=== PATIENT | female | born 1975 | race Caucasian/White ===

== ENCOUNTER 2016-12-16 20:10 | Emergency (ER) | payer BC, OTHER ==
[~2016-12-16] VITALS: Ht 170.2 cm; Wt 79.4 kg
[~2016-12-16 20:10] MED LIST: DICY10CA55 PO; LEVO112T4 PO; MTR600X PO; PRENTAB26 PO
[2016-12-16 20:44] VITALS: TEMP 36.3; Ht 170.2 cm; Wt 79.4 kg
[2016-12-16 21:17] VITALS: O2SAT 98
[2016-12-16 21:31] LABS: BASO % 0.3 %; BASO ABS # 0.03 K/uL (0-0.2); COMPLETE YES; EOS % 2.5 %; HEMATOCRIT 34.3 % (37-47); IG% 0.3 %; LYMPH % 21.4 %; LYMPH ABS # 2.36 K/uL (1.2-3.4); MEAN CELL VOLUME 85.8 fL (80-100); MEAN CORPUSCULAR HEMOGLOBIN 29.5 pg (25-34); MEAN CORPUSCULAR HGB CONC 34.4 g/dl (32-36); MEAN PLATELET VOLUME 8.5 fL (7.4-10.4); MONO % 7.1 %; NEUT % 68.4 %; PLATELET COUNT 380 K/uL (130-400); WHITE BLOOD COUNT 11.04 K/uL (4.8-10.8)
[2016-12-16 21:48] LABS: PROTHROMBIN TIME (PATIENT) 10.7 SECONDS (9.0-12.0)
--- NOTE | 2016-12-16 21:48 | EMERGENCY ROOM VISIT NOTE ---
History Report prepared by [place]: Gabriella Moreno Under the Supervision of: Dr. Sundar Hughes M.D. First contact with patient: 20:58 Chief Complaint: VAGINAL BLEEDING Stated Complaint: EXCESSIVE BLEEDING AFTER MISCARRIAGE History of Present Illness The patient is a 41 year old female who presents to the Emergency Room with complaints of worsening vaginal bleeding that started this morning. She states that she is passing clots. She states that she had a miscarriage this morning. This was the patient's second and first miscarriage. She has a 13 month old at home. The patient had an ultrasound done earlier today and it revealed that her uterus was empty. She states that she has been bleeding through adult diapers in less than one hour and she was told that if she bled through one pad an hour she should come into the ED. The patient states that she talked to the triage nurse in [place] multiple times today who told her to come into the ED if her symptoms persisted and call [facility] [facility] on the way in , but she was given the wrong number. The patient also experiencing dizziness and numbness in her bilateral hands. Additionally, the patient is experiencing intermittent abdominal cramping when she is about to pass large clots. The patient states that she has A+ positive blood. Source of History: patient Onset: this morning Position: other (vagina) Quality: other (vaginal bleeding with clots) Timing: worsening Associated Symptoms: + abdominal pain (cramping), + numbness (bilateral hands) Note: dizziness Review of Systems See HPI for pertinent positives & negatives. A total of 10 systems reviewed and were otherwise negative. Past Medical & Surgical Surgical Problems: (1) History of partial thyroidectomy Family History No significant family history Social History Smoking Status: Former Smoker Alcohol Use: none Marital Status: in relationship Occupation Status: employed Current/Historical Medications Scheduled Levothyroxine Sodium (Levothyroxine Sodium), 112 MCG PO DAILY Multivit/Min/Iron/Fol Ac/Pren ( Vitamin), 1 TAB PO DAILY Scheduled PRN Ibuprofen (Ibuprofen), 600 MG PO Q4H PRN for PAIN, PHAM, CRAMPING OR FEVER Allergies Coded Allergies: No Known Allergies (Verified , NO, 12/16/16) Physical Exam Vital Signs Date Time Temp Pulse Resp B/P Pulse Ox O2 Delivery O2 Flow Rate FiO2 12/17/16 00:50 75 16 105/75 97 12/16/16 23:38 72 18 111/75 98 Room Air 12/16/16 22:58 75 20 115/70 98 Room Air 12/16/16 21:36 80 12/16/16 21:17 98 Room Air 12/16/16 20:44 36.3 107 18 107/71 99 Room Air Physical Exam GENERAL: Patient is a healthy-appearing well-nourished female. HEAD: Normocephalic atraumatic EYES: Ocular movements intact pupils equal and react to light OROPHARYNX mucous membranes are moist no exudates present no erythema or edema present NECK: Supple no nuchal rigidity CHEST: Good equal expansion LUNGS: Clear and equal to auscultation CARDIAC: Normal S1 and S2 ABDOMEN: Soft nontender no guarding BACK: No CVA tenderness EXTREMITIES: No pain upon palpation normal muscle strength in all groups no clubbing cyanosis or edema NEURO: Patient is following commands is answering questions appropriately. Alert and oriented x3 Cranial Nerves 2-12 grossly intact Medical Decision & Procedures ER Provider Diagnostic Interpretation: US results as stated below per my review and radiologist interpretation: US PELVIC/ENDOVAG: IMPRESSION: No IUP, Endometrium measures 1.1 cm and is heterogeneous. Retained products of conception/debris is not excluded. 2.9 cm right ovarian cyst. No torsion. 2.8 cm left ovarian cyst. No torsion. Probable of small fibroid. 1.3 cm echogenic structure in the expected area of the left ovary. Could be dermoid. Differential includes bowel gas in the region. Laboratory Results 12/16/16 21:18 Red Blood Count 4.00, Mean Corpuscular Volume 85.8, Mean Corpuscular Hemoglobin 29.5, Mean Corpuscular Hemoglobin Concent 34.4, Mean Platelet Volume 8.5, Neutrophils (%) (Auto) 68.4, Lymphocytes (%) (Auto) 21.4, Monocytes (%) (Auto) 7.1, Eosinophils (%) (Auto) 2.5, Basophils (%) (Auto) 0.3, Neutrophils # (Auto) 7.56, Lymphocytes # (Auto) 2.36, Monocytes # (Auto) 0.78, Eosinophils # (Auto) 0.28, Basophils # (Auto) 0.03 12/16/16 21:18 Test 12/16/16 21:18 12/16/16 22:03 White Blood Count 11.04 K/uL (4.8-10.8) Red Blood Count 4.00 M/uL (4.2-5.4) Hemoglobin 11.8 g/dL (12.0-16.0) Hematocrit 34.3 % (37-47) Mean Corpuscular Volume 85.8 fL (80-100) Mean Corpuscular Hemoglobin 29.5 pg (25-34) Mean Corpuscular Hemoglobin Concent 34.4 g/dl (32-36) Platelet Count 380 K/uL (130-400) Mean Platelet Volume 8.5 fL (7.4-10.4) Neutrophils (%) (Auto) 68.4 % Lymphocytes (%) (Auto) 21.4 % Monocytes (%) (Auto) 7.1 % Eosinophils (%) (Auto) 2.5 % Basophils (%) (Auto) 0.3 % Neutrophils # (Auto) 7.56 K/uL (1.4-6.5) Lymphocytes # (Auto) 2.36 K/uL (1.2-3.4) Monocytes # (Auto) 0.78 K/uL (0.11-0.59) Eosinophils # (Auto) 0.28 K/uL (0-0.5) Basophils # (Auto) 0.03 K/uL (0-0.2) RDW Standard Deviation 42.8 fL (36.4-46.3) RDW Coefficient of Variation 13.7 % (11.5-14.5) Immature Granulocyte % (Auto) 0.3 % Immature Granulocyte # (Auto) 0.03 K/uL (0.00-0.02) Prothrombin Time 10.7 SECONDS (9.0-12.0) Prothromb Time International Ratio 1.0 (0.9-1.1) Activated Partial Thromboplast Time 24.8 SECONDS (21.0-31.0) Partial Thromboplastin Ratio 1.0 Anion Gap 12.0 mmol/L (3-11) Est Creatinine Clear Calc Drug Dose 88.1 ml/min Estimated GFR () 89.7 Estimated GFR (Non- 77.4 BUN/Creatinine Ratio 11.4 (10-20) Calcium Level 8.4 mg/dl (8.5-10.1) Total Bilirubin 0.2 mg/dl (0.2-1) Aspartate Amino Transf (AST/SGOT) 16 U/L (15-37) Alanine Aminotransferase (ALT/SGPT) 17 U/L (12-78) Alkaline Phosphatase 76 U/L (45-117) Total Protein 6.3 gm/dl (6.4-8.2) Albumin 3.0 gm/dl (3.4-5.0) Globulin 3.3 gm/dl (2.5-4.0) Albumin/Globulin Ratio 0.9 (0.9-2) Human Chorionic Gonadotropin, Quant 3139 mIU/mL Urine Color RED Urine Appearance CLOUDY (CLEAR) Urine pH (4.5-7.5) Urine Specific [place] (1.000-1.030) Urine Protein (NEG) Urine Glucose (UA) (NEG) Urine Ketones (NEG) Urine Occult Blood (NEG) Urine Nitrite (NEG) Urine Bilirubin (NEG) Urine Urobilinogen (NEG) Urine Leukocyte Esterase (NEG) Urine RBC >30 /hpf (0-4) Urine WBC >30 /hpf (0-5) Urine Epithelial Cells 10-20 /lpf (0-5) Urine Bacteria NEG (NEG) Urine Test POS (NEG) Labs reviewed by ED physician. Medications Administered Medications (Trade) Dose Ordered Sig/Maxim Route Start Time Stop Time Status Last Admin Dose Admin Misoprostol (Cytotec Tab) 600 mcg NOW STAT PO 12/17/16 00:32 12/17/16 00:33 DC 12/17/16 00:49 600 MCG ED Course 2100: Past medical records reviewed. The patient was evaluated in room A12. A complete history and physical examination was performed. 2142: I discussed the patient's case with Dr. Harden - [facility] [employer], he has agreed to evaluate the patient. 2222: Dr. Harden evaluated the patient. He said to order an ultrasound and inform him of the results. 0023: Dr. Harden evaluated the patient. He said to start her on Misoprostol and he will call her tomorrow. 0032: Upon reexamination the patient is doing well. I discussed results and treatment plan with the patient. She verbalizes agreement and understanding. The patient is ready for discharge. Ordered Cytotec Tab 600 mcg PO Medical Decision Differential diagnosis: Etiologies such as ectopic , dysfunction uterine bleeding, bleeding dyscrasia, trauma, infection, as well as others were entertained. This is a 41-year-old female who presents emergency department after suffering a miscarriage earlier today. Upon arrival to emergency department the patient has no complaints. Due to the nature the patient's complaints a blood I was obtained however the patient is a positive. In addition the patient's hemoglobin appears to be stable. The patient is expecting to see Dr. Harden here in the emergency department so I did discuss the case with him. He asked for an ultrasound. The patient was then reevaluated by Fina who asked that the patient be started on misoprostol and that he will follow-up with her tomorrow. Patient was in agreement with the treatment plan. Consults Time Called: 2135 Consulting Physician: Dr. Harden - [facility] [facility] Returned Call: 2141 I discussed the patient's case with Dr. Harden - [facility], he has agreed to evaluate the patient. Impression Primary Impression: Miscarriage Scribe Attestation The scribe's documentation has been prepared under my direction and personally reviewed by me in its entirety. I confirm that the note above accurately reflects all work, treatment, procedures, and medical decision making performed by me. Departure Information Dispostion Home / Self-Care Referrals No Doctor, Assigned (PCP) Forms HOME CARE DOCUMENTATION FORM, IMPORTANT VISIT INFORMATION, WORK / SCHOOL INSTRUCTIONS Patient Instructions Miscarriage - [facility], [facility] Additional Instructions You have been examined and treated today on an emergency basis only. This is not a substitute for, or an effort to provide, complete comprehensive medical care. It is impossible to recognize and treat all injuries or illnesses in a single emergency department visit. It is therefore important that you follow up closely with your PCP. Call as soon as possible for an appointment. Thank you for your time and consideration. I look forward to speaking with you again soon. Please don't hesitate to call us if you have any questions.
[2016-12-16 21:55] LABS: BUN/CREATININE RATIO 11.4 (10-20); CALCIUM 8.4 mg/dl (8.5-10.1); CREATININE 0.93 mg/dl (0.60-1.20); POTASSIUM 3.4 mmol/L (3.5-5.1)
[2016-12-16 21:58] LABS: ALB/GLOB RATIO 0.9 (0.9-2)
[2016-12-16 22:36] LABS: MANUAL MICROSCOPIC REQUIRED? YES; PREG INTERNAL NEGATIVE QC NEG CLEAR BACKGROUND; PREG INTERNAL POSITIVE QC POS CONTROL LINE; REVIEW REQ? NO; SULFASALICYLIC ACID POS (NEG); URINE APPEARANCE CLOUDY (CLEAR); URINE COLOR RED
[2016-12-16 22:39] LABS: URINE RBC >30 /hpf (0-4); URINE WBC >30 /hpf (0-5)
[2016-12-16 22:40] LABS: URINE BACTERIA NEG (NEG)
[2016-12-17] MEDS ORDERED: MISOPROSTOL 200 MCG TAB PO STA (00:32)
[2016-12-17 00:50] VITALS: BP 105/75; PULSE 75; O2SAT 97
--- NOTE | 2016-12-17 01:46 | GYNECOLOGICAL CONSULTATION ---
DATE OF CONSULTATION: 12/16/2016 REQUESTING PHYSICIAN: Dr. Sundar Hughes. REASON FOR CONSULT: vaginal bleeding. HISTORY OF PRESENT ILLNESS: This is a 41-year-old G2, P1, who was 9 weeks as of this morning. She was seen in the office for an ultrasound because she had been passing clots and had passed what was suspected to be fetus in the last 2 days. The patient today underwent an ultrasound in the office which showed no IUP. The endometrium was thickened. Pelvic exam was unremarkable. The patient was, therefore, discharged home. She continued to experience heavy vaginal bleeding and came to the Emergency Room this evening. On arrival to the Emergency Room, she had no shortness of breath, no chills, no fever. 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 On my arrival to the bedside, the patient is alert, awake and oriented. She does not have any shortness of breath or chills. She is not diaphoretic. Vitals are stable. Pelvic exam is done and showed products of conception at the cervical os, which is removed. Once the products are removed, bleeding improved. The patient was sent for an ultrasound at [facility]. The ultrasound once again confirmed no IUP, possible products of conception still in the uterus. PAST MEDICAL HISTORY: History of thyroid disease. PAST SURGICAL HISTORY: History of thyroid surgery. MEDICATIONS: vitamins and levothyroxine. ALLERGIES: No known drug allergies. SOCIAL HISTORY: The patient denies drug, tobacco or alcohol use. PHYSICAL EXAMINATION: GENERAL: Well-developed, well-nourished white female in no acute distress. VITAL SIGNS: Stable. Temperature is 36.3, pulse is 98, respirations 18, blood pressure is 107/71. CBC shows stable hemoglobin and hematocrit. HEART: S1, S2, regular rhythm and rate. LUNGS: Clear to auscultation bilaterally. ABDOMEN: Nontender, nondistended. PELVIC: As stated in HPI. There were some products of conception at the cervical os, which was removed. Bleeding has remarkably improved since then. Cervix now appears close after removal of the products of conception. Uterus measured about 8 weeks' size. EXTREMITIES: No cyanosis, clubbing or edema. ASSESSMENT AND PLAN: A 41-year-old with what appears to be an incomplete . The patient is offered D\T\E. The patient has declined and wants to do expectant management. I have discussed with the patient the possibility of worsening bleeding once she goes home and will have to come back to the Emergency Room. The patient understands and has agreed to do so. She is, therefore, given Cytotec 600 mcg. I have discussed discharge with Dr. Hughes. The patient is, therefore, being discharged home at her request with instructions. ADALBERTO
--- NOTE | 2016-12-17 06:15 | DIAGNOSTIC IMAGING REPORT ---
EXAMINATION: PELVIC ULTRASOUND CLINICAL HISTORY: Pt miscarriage BLEEDING COMPARISON STUDY: None FINDINGS: The uterus measured 8.9 cm. Small uterine fibroid. The endometrial stripe measured 11 mm. The right ovary measured 3.8 cm maximum dimension including a 2.9 cm cyst.. The left ovary measured 3.4 cm maximum dimension including a 2.8 cm cyst. There is no ultrasonographic evidence of ovarian torsion. It should be noted that ovarian torsion can be present with normal Doppler ultrasonographic findings. There was no evidence of pathologic free pelvic fluid. IMPRESSION: Bilateral ovarian cysts. Small uterine fibroid. Mild endometrial thickening Electronically signed by: Mayito Harrell M.D. 12/17/2016 6:14 AM Dictated Date/Time: 12/17/2016 6:12 AM
== END 2016-12-17 00:52 | disposition home or self-care (01) ==
LOC: C.EDB 20:10 → C.EDA 12-17 00:52
DX: O03.9 Complete or unspecified spontaneous abortion without complication (principal); Z3A.09 9 weeks gestation of pregnancy; Z79.899 Other long term (current) drug therapy; Z87.891 Personal history of nicotine dependence

== ENCOUNTER 2018-05-28 12:14 | Outpatient (CLI) | payer OTHER ==
[~2018-05-28] VITALS: Ht 170.2 cm; Wt 98.6 kg
[~2018-05-28 12:14] MED LIST changes: -DICY10CA55 PO
[2018-05-28 13:59] VITALS: Ht 170.2 cm; Wt 98.6 kg
[2018-05-28] MEDS ORDERED: FERR50TA3 (14:03)
[2018-05-28 14:14] LABS: BASO % 0.1 %; BASO ABS # 0.01 K/uL (0-0.2); EOS % 0.3 %; EOS ABS # 0.04 K/uL (0-0.5); HEMATOCRIT 40.9 % (37-47); HEMOGLOBIN 13.6 g/dL (12.0-16.0); IG# 0.05 K/uL (0.00-0.02); LYMPH % 22.5 %; LYMPH ABS # 2.69 K/uL (1.2-3.4); MEAN CELL VOLUME 85.7 fL (80-100); MEAN CORPUSCULAR HEMOGLOBIN 28.5 pg (25-34); MEAN CORPUSCULAR HGB CONC 33.3 g/dl (32-36); MONO % 7.9 %; MONO ABS # 0.95 K/uL (0.11-0.59); NEUT % 68.8 %; NEUT ABS # 8.22 K/uL (1.4-6.5); PLATELET COUNT 341 K/uL (130-400); RED CELL DISTRIBUTION WIDTH CV 20.3 % (11.5-14.5); RED CELL DISTRIBUTION WIDTH SD 62.5 fL (36.4-46.3); WHITE BLOOD COUNT 11.96 K/uL (4.8-10.8)
[2018-05-28 14:35] LABS: ALBUMIN 2.4 gm/dl (3.4-5.0); CALCIUM 8.7 mg/dl (8.5-10.1); CREATININE 0.66 mg/dl (0.60-1.20); POTASSIUM 3.8 mmol/L (3.5-5.1); TOTAL PROTEIN 6.8 gm/dl (6.4-8.2)
== END 2018-05-28 15:25 | disposition home or self-care (01) ==
LOC: C.OPB 12:14 → C.LD 12:15 → C.OPB 15:25
PROVIDERS: ATTEND Obstetrics & Gynecology
DX: O62.9 Abnormality of forces of labor, unspecified (principal); O09.523 Supervision of elderly multigravida, third trimester; Z3A.38 38 weeks gestation of pregnancy; O99.283 Endocrine, nutritional and metabolic diseases complicating pregnancy, third trimester; E03.9 Hypothyroidism, unspecified; O99.613 Diseases of the digestive system complicating pregnancy, third trimester; K58.9 Irritable bowel syndrome, unspecified; K21.9 Gastro-esophageal reflux disease without esophagitis

== ENCOUNTER 2018-05-28 18:17 | Inpatient (IN) | payer OTHER ==
[~2018-05-28] VITALS: Ht 170.2 cm; Wt 98.6 kg
[~2018-05-28 18:17] MED LIST changes: +FERR50TA3
[2018-05-28] MEDS ORDERED: LACTATED RINGER'S 1000ML 1,000 ML IV PRN (18:23)
[2018-05-28] MEDS ORDERED: LACTATED RINGER'S 1000ML 1,000 ML IV SCH (18:23)
[2018-05-28 18:47] LABS: HEMATOCRIT 40.4 % (37-47); HEMOGLOBIN 13.7 g/dL (12.0-16.0); MEAN CELL VOLUME 84.9 fL (80-100); MEAN CORPUSCULAR HEMOGLOBIN 28.8 pg (25-34); MEAN CORPUSCULAR HGB CONC 33.9 g/dl (32-36); MEAN PLATELET VOLUME 9.8 fL (7.4-10.4); PLATELET COUNT 326 K/uL (130-400); RED CELL DISTRIBUTION WIDTH CV 20.3 % (11.5-14.5); RED CELL DISTRIBUTION WIDTH SD 61.8 fL (36.4-46.3); WHITE BLOOD COUNT 15.74 K/uL (4.8-10.8)
[2018-05-28] MEDS ORDERED: BUTORPHANOL TARTRATE 1 MG/ML VIAL IV PRN (19:00)
[2018-05-28 19:04] VITALS: Ht 170.2 cm; Wt 98.6 kg
--- NOTE | 2018-05-28 19:05 | HISTORY & PHYSICAL EXAMINATION ---
DATE OF ADMISSION: 05/28/2018 HISTORY OF PRESENT ILLNESS: This is a 42-year-old G3, P1, due date 06/05/2018 making her 38 weeks and 6 days today, presented to labor and delivery with labor discomfort. On arrival to labor and delivery, she has no shortness of breath, no chills, no fever. She was examined and found to be 5 cm dilated with bulging membranes. Patient has significant discomfort with contractions. COURSE: Has been unremarkable. LABS: Blood type A positive, antibody negative, rubella immune, GBS negative. PAST MEDICAL HISTORY: 1. History of dyslipidemia. 2. Ovarian cyst. 3. Benign neoplasm of the skin. 4. Goiter. 5. Irritable bowel syndrome. PAST SURGICAL HISTORY: History of thyroid surgery, colonoscopy and EGD for rectal bleeding. ALLERGIES: No known drug allergies. SOCIAL HISTORY: Patient denies tobacco, drug or alcohol use. FAMILY HISTORY: Noncontributory. 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 PHYSICAL EXAMINATION: GENERAL: Well-developed, well-nourished white female in labor discomfort. HEART: S1, S2, regular rhythm and rate. LUNGS: Clear to auscultation bilaterally. ABDOMEN: Gravid. heart rate is category 1. PELVIC: On arrival was 5 cm with bulging membranes. EXTREMITIES: No cyanosis, clubbing, edema. ASSESSMENT AND PLAN: A 42-year-old G3, P1 at 38 and 6 weeks. Patient is in labor. Plan is to admit patient and anticipate vaginal delivery.
[2018-05-28] MEDS ORDERED: BUTORPHANOL TARTRATE 1 MG/ML VIAL ONE (19:06)
[2018-05-28] MEDS ORDERED: OXYTOCIN 30 UNITS/500ML NSS IV ONE (19:26)
[2018-05-28] MEDS ORDERED: SUPERCREAM 0.870 % 15GM JAR EXT PRN (20:00)
[2018-05-28] MEDS ORDERED: BENZOCAINE 20% AER SPR 82.5 GM CAN EXT PRN (20:00)
[2018-05-28] MEDS ORDERED: ACETAMINOPHEN/CODEINE 300/30MG TAB PO PRN ×2 (20:00)
[2018-05-28] MEDS ORDERED: HYDROCORTISONE ACETATE 25 MG SUPP PR PRN (20:00)
[2018-05-28] MEDS ORDERED: LANOLIN OINT EXT PRN (20:00)
[2018-05-28] MEDS ORDERED: OXYCODONE/ACETAMINOPHEN 5-325 TAB PO PRN (20:00)
[2018-05-28] MEDS ORDERED: ACETAMINOPHEN 325 MG TAB PO PRN (20:00)
--- NOTE | 2018-05-28 20:13 | OPERATIVE REPORT ---
DATE OF OPERATION: 05/28/2018 DELIVERY NOTE The patient delivered a live male in left occiput anterior presentation. There was loose nuchal cord, which was easily reduced. was delivered, placed on mother's abdomen. Cord clamped and cut 1 minute. Cord blood was obtained. Infant's weight is pending. Apgars 8 and 9. Placenta was spontaneously delivered. Inspection shows normal gross leaking placenta, 3-vessel cord is noted. Inspection of the perineum showed a second-degree midline laceration, which was repaired in layers with 3-0 Vicryl. All instruments were removed from the vagina and accounted for x2. Estimated blood loss is 5 mL. The patient and baby are doing well in recovery. I attest to the content of the Intraoperative Record and any orders documented therein. Any exception s are noted below.
[2018-05-28 21:53] VITALS: BP 147/99; PULSE 88; TEMP 36.9
[2018-05-28 22:20] LABS: HEMATOCRIT 42.2 % (37-47); HEMOGLOBIN 14.3 g/dL (12.0-16.0); MEAN CELL VOLUME 84.9 fL (80-100); MEAN CORPUSCULAR HEMOGLOBIN 28.8 pg (25-34); MEAN CORPUSCULAR HGB CONC 33.9 g/dl (32-36); MEAN PLATELET VOLUME 9.8 fL (7.4-10.4); PLATELET COUNT 338 K/uL (130-400); RED CELL DISTRIBUTION WIDTH CV 20.3 % (11.5-14.5); RED CELL DISTRIBUTION WIDTH SD 61.9 fL (36.4-46.3); WHITE BLOOD COUNT 21.03 K/uL (4.8-10.8)
[2018-05-28 22:48] LABS: ALBUMIN 2.4 gm/dl (3.4-5.0); CALCIUM 8.9 mg/dl (8.5-10.1); CREATININE 0.72 mg/dl (0.60-1.20)
[2018-05-28] MEDS: OXYTOCIN 30 UNITS/500ML NSS IV PRN ×2 (22:53→22:55)
[2018-05-28] MEDS ORDERED: NURSING VERBAL MED ORDER ONE (23:00)
[2018-05-29] VITALS (8 sets, daily range): BP systolic 130–148; BP diastolic 73–97; PULSE 76–99; TEMP 36.1–36.8; O2SAT 96–98
[2018-05-29] MEDS: IBUPROFEN 600 MG TAB PO PRN ×4 (01:53→23:21)
[2018-05-29] MEDS: DOCUSATE SODIUM 100 MG CAP PO SCH ×3 (07:18→20:17)
[2018-05-29] MEDS: LEVOTHYROXINE 112 MCG TAB PO SCH (07:19)
[2018-05-29 07:21] LABS: HEMATOCRIT 37.2 % (37-47); HEMOGLOBIN 12.3 g/dL (12.0-16.0)
[2018-05-29] MEDS: PRENATAL VITAMIN TAB PO SCH (09:01)
[2018-05-29] MEDS: FERROUS SULFATE 325 MG TAB PO SCH (09:01)
--- NOTE | 2018-05-29 10:04 | OB/GYN Progress Note ---
[employer] Progress Note Date of Service May 29, 2018. Subjective conversation w/ patient Ambulation: ambulating normally Voiding: no voiding problems Passing Gas: Yes Diet Tolerance: Regular Diet Lochia: Small Feeding Type: Breast Feeding Objective Vital Signs Date Time Temp Pulse Resp B/P (MAP) Pulse Ox O2 Delivery O2 Flow Rate FiO2 05/29/18 07:30 36.6 78 16 148/94 (112) Room Air 05/29/18 07:30 Room Air 05/29/18 03:20 36.8 79 18 142/92 (109) Room Air 05/29/18 00:32 36.7 80 18 147/73 (97) Room Air 05/28/18 21:53 36.9 88 18 147/99 (115) Room Air 05/28/18 21:53 Room Air Physical Exam General Appearance: WELL-APPEARING, NO APPARENT DISTRESS Abdomen: non tender, soft Fundus: Firm Extremities: normal range of motion, non-tender, normal inspection, no pedal edema Laboratory Results Last 24 Hours Test 05/28/18 18:38 05/28/18 22:04 05/29/18 06:39 White Blood Count 15.74 K/uL 21.03 K/uL Red Blood Count 4.76 M/uL 4.97 M/uL Hemoglobin 13.7 g/dL 14.3 g/dL 12.3 g/dL Hematocrit 40.4 % 42.2 % 37.2 % Mean Corpuscular Volume 84.9 fL 84.9 fL Mean Corpuscular Hemoglobin 28.8 pg 28.8 pg Mean Corpuscular Hemoglobin Concent 33.9 g/dl 33.9 g/dl RDW Standard Deviation 61.8 fL 61.9 fL RDW Coefficient of Variation 20.3 % 20.3 % Platelet Count 326 K/uL 338 K/uL Mean Platelet Volume 9.8 fL 9.8 fL Sodium Level 138 mmol/L Potassium Level 4.0 mmol/L Chloride Level 109 mmol/L Carbon Dioxide Level 20 mmol/L Anion Gap 10.0 mmol/L Blood Urea Nitrogen 11 mg/dl Creatinine 0.72 mg/dl Est Creatinine Clear Calc Drug Dose 125.3 ml/min Estimated GFR () 121.4 Estimated GFR (Non- 104.8 BUN/Creatinine Ratio 15.5 Random Glucose 123 mg/dl Calcium Level 8.9 mg/dl Total Bilirubin 0.1 mg/dl Aspartate Amino Transf (AST/SGOT) 19 U/L Alanine Aminotransferase (ALT/SGPT) 20 U/L Alkaline Phosphatase 164 U/L Total Protein 7.0 gm/dl Albumin 2.4 gm/dl Globulin 4.6 gm/dl Albumin/Globulin Ratio 0.5 Assessment and Plan Post- Day Number: 1 Continue Routine Care: tent d/c in AM
[2018-05-29] MEDS ORDERED: BISACODYL 5 MG TABEC PO SCH (20:00)
[2018-05-30] MEDS: IBUPROFEN 600 MG TAB PO PRN ×2 (04:08→07:32)
[2018-05-30] MEDS ORDERED: BISACODYL 10 MG SUPP PR PRN (07:00)
[2018-05-30] MEDS: DOCUSATE SODIUM 100 MG CAP PO SCH (07:28)
[2018-05-30] MEDS: LEVOTHYROXINE 112 MCG TAB PO SCH (07:28)
[2018-05-30] MEDS: FERROUS SULFATE 325 MG TAB PO SCH (07:29)
[2018-05-30] MEDS: PRENATAL VITAMIN TAB PO SCH (07:29)
[2018-05-30 08:00] VITALS: BP 126/83; PULSE 87; TEMP 36.8
[2018-05-30 08:25] LABS: HEMATOCRIT 39.5 % (37-47); HEMOGLOBIN 12.9 g/dL (12.0-16.0); MEAN CORPUSCULAR HEMOGLOBIN 28.7 pg (25-34); MEAN CORPUSCULAR HGB CONC 32.7 g/dl (32-36); MEAN PLATELET VOLUME 9.9 fL (7.4-10.4); PLATELET COUNT 325 K/uL (130-400); RED CELL DISTRIBUTION WIDTH CV 20.9 % (11.5-14.5); RED CELL DISTRIBUTION WIDTH SD 65.3 fL (36.4-46.3); WHITE BLOOD COUNT 12.02 K/uL (4.8-10.8)
[2018-05-30] MEDS ORDERED: MTR600X PO (08:34)
--- NOTE | 2018-05-30 08:36 | Discharge Instructions ---
Discharge Instructions Date of Service May 30, 2018. Admission Reason for Admission: LABOR Discharge Discharge Diagnosis / Problem: term delivered Discharge Goals Goal(s): Routine recovery after delivery Activity Recommendations Activity Limitations: as noted below Lifting Limitations: no more than 10 pounds Exercise/Sports Limitations: gradually increase as tolerated Shower/Bathe: no limitations Driving or Machine Use: resume 3 days after discharge . Instructions / Follow-Up Instructions / Follow-Up ACTIVITY RECOMMENDATIONS: * Gradual return to full activity over the next 2-3 weeks. * No lifting - nothing heavier than baby over the next 2-3 weeks. * Do not engage in vigorous exercise, sexual activity or sports until cleared by your physician. * Do not drive or operate any motorized equipment until cleared by your physician. * You may shower/bathe daily. BREAST CARE: If you are not breast feeding: * Wear a supportive bra 24 hours a day for one to two weeks. * Avoid stimulating your breasts and nipples as much as possible during the first few weeks after delivery. * When taking a shower, have the warm water hit your back, not breasts. * When your breasts feel full, apply ice packs. Usually three to four times a day helps ease the discomfort. * Take a mild pain medication (Tylenol/Motrin) when you are uncomfortable. If breast feeding: * Use breast milk to lubricate nipples. Lansinoh cream may be used for sore nipples. You do not need to remove cream prior to breast feeding. If using a different brand of cream, check the label for directions regarding removal of cream prior to nursing. * Wear a supportive bra. * If having problems with breasts or breast feeding, call a consultant dietitian or your health care provider. EPISIOTOMY CARE: After delivery, if you have an episiotomy (stitches), the following steps will ease discomfort and aid healing. * For the first 24 hours after delivery, place ice packs next to your episiotomy to help reduce swelling. * After the first 24 hour-period, sitz baths, either portable or in the tub, are suggested. A shower with a shower arm sprayed over the episiotomy may be comforting. * Mary care should be done after each voiding and bowel movement. Squirt warm water from a plastic bottle over the perineum (region of the body between the anus and urinary opening) and pat dry. * Use Dermoplast to ease discomfort. Shake container. [place] directly over the episiotomy. * Place a Tucks on a clean sanitary pad next to your episiotomy. OVER THE COUNTER MEDICATION: * For discomfort or pain, you may use Acetaminophen (Tylenol), Ibuprofen (Advil ), or Naproxen (Aleve) following the package directions. * For constipation you may use Colace following the package directions. SPECIAL CARE INSTRUCTIONS: When you are discharged from the hospital, it is important for you to follow the instructions listed below: * During the first week at home, you should be able to care for yourself and your baby. In addition, the usual light household activities are encouraged. * Limit your activities to the way you feel. Do not try to clean the house or move furniture. Be sensible. * If you actively engage in sports and have done so up until the time of your delivery, you may resume these activities as soon as you feel able. This may take up to one month or even longer. Use good judgment. * Continue to take your vitamins for at least six weeks after the of your baby. * Your diet need not be limited unless you were on a special diet before your delivery. Breast-feeding mothers need around 2500 calories per day and at least 64-80 ounces of fluid per day (8 to 10 glasses). * You should eat foods from the four major food groups. Crash diets or fad diets are to be avoided. Eating lean meats, fresh fruits and vegetables, low-fat dairy products, high fiber foods and a regular exercise program, will help you get back to your pre- weight without putting your health at risk. * Constipation is sometimes a problem after delivery. Take a mild laxative as needed. If breast feeding, Milk of Magnesia is acceptable to use. You may use a suppository or Fleets enema if no episiotomy. * A daily shower or tub bath is suggested. Be sure to thoroughly and gently dry the perineum. * A bloody vaginal discharge will usually continue until around four weeks post . A small amount of bleeding may continue for as long as six weeks. Vaginal discharge changes from the bright red bleeding after delivery to pink then brownish and finally yellowish-pink before becoming white and disappearing. * Bleeding may increase with activity. Your first period may come in 4-8 weeks. If you are breast feeding, your period may be delayed even longer. * [place] (sex) can begin whenever both you and your partner feel comfortable and do not have any form of genital infection. It is recommended that you wait until after your return appointment and discuss with your physician. If you have questions, please talk to your health care practitioner. A condom should be used to prevent infection and . * Foreplay, gentle intercourse and lubrication is very important the first several times to prevent pain. A water-based lubricant such as K-Y jelly or Astroglide may be used. * Tampons may be used six weeks after delivery. * Douching should be avoided for 6 weeks after delivery. * If you have RH negative blood and your baby is RH positive, you will receive RHOGAM by injection prior to discharge. The nurse will give you a card to keep with you that has the date and place that you received RHOGAM after delivery. * During your care, you had a Rubella screen done to check for the presence of rubella antibodies in your blood. If your test was negative, you will receive a Rubella vaccine prior to discharge. This vaccine may cause a fever, soreness at the injection site and flu-like symptoms. If these symptoms persist, notify your health care practitioner. is not advised for three months after a Rubella vaccine. There is a higher chance of having a baby with defects if conceived within three months of getting the vaccine. * If you were discharged 24 hours from delivery or before 48 hours: Visiting nurses will come to your home 48 hours after discharge to assess you and your baby. The visiting nurse will meet with you while you are in the hospital to arrange a time and get directions to your home. * Verbalizes understanding of car seat law as reviewed with patient nursing. * Car Seat hand-out given and reviewed with patient by nursing. * Shaken baby information reviewed with patient by nursing. Call you doctor if: * Heavy bleeding (saturating several pads an hour) or passing clots the size of your fist. * A fever >101 degrees F (38.3 degrees C) on two occasions four hours apart and/or chills. * Unusual pain in the pelvic or vaginal areas. * "Baby Blues" lasting longer than two weeks. If you have any questions or concerns, call your health care practitioner at . FOLLOW-UP VISIT: * Please call the office at to schedule a 6 week examination. It is important you keep this appointment. * It is important for you to make arrangements for either yearly or twice yearly check-ups thereafter. Current Hospital Diet Patient's current hospital diet: Regular OB Diet Discharge Diet Recommended Diet: Regular OB Diet Fluid Restriction: None Pending Studies Studies pending at discharge: no Medical Emergencies . Who to Call and When: Medical Emergencies: If at any time you feel your situation is an emergency, please call 911 immediately. . Non-Emergent Contact Non-Emergency issues call your: Primary Care Provider . . "Provider Documentation" section prepared by Gaurav Diaz. .
--- NOTE | 2018-05-30 08:37 | OB/GYN Progress Note ---
[employer]ATIONS [employer]OC[employer] Progress Note Date of Service May 30, 2018. Subjective conversation w/ patient, physical exam Ambulation: ambulating normally Passing Gas: Yes Diet Tolerance: Regular Diet Lochia: Small Feeding Type: Breast Feeding Objective Vital Signs Date Time Temp Pulse Resp B/P (MAP) Pulse Ox O2 Delivery O2 Flow Rate FiO2 05/29/18 23:25 36.8 76 18 133/89 (104) 98 Room Air 05/29/18 23:25 98 Room Air 05/29/18 20:25 36.8 84 20 147/97 (114) 96 Room Air 131/85 (100) 05/29/18 15:35 97 Room Air 05/29/18 15:35 36.7 90 18 130/84 (99) 97 Room Air 05/29/18 12:30 36.7 99 16 130/89 (103) Room Air Physical Exam General Appearance: WELL-APPEARING, NO APPARENT DISTRESS Abdomen: non tender, soft Fundus: Firm Extremities: non-tender, normal inspection, no pedal edema Laboratory Results Last 24 Hours Test 05/30/18 07:44 White Blood Count 12.02 K/uL Red Blood Count 4.49 M/uL Hemoglobin 12.9 g/dL Hematocrit 39.5 % Mean Corpuscular Volume 88.0 fL Mean Corpuscular Hemoglobin 28.7 pg Mean Corpuscular Hemoglobin Concent 32.7 g/dl RDW Standard Deviation 65.3 fL RDW Coefficient of Variation 20.9 % Platelet Count 325 K/uL Mean Platelet Volume 9.9 fL Assessment and Plan Post- Day Number: 2 Continue Routine Care: discharged
[2018-05-30 12:45] VITALS: BP_DIAS 83; PULSE 87; TEMP 36.8
== END 2018-05-30 12:50 | disposition home or self-care (01) | DRG 775 ==
LOC: C.LD 18:17 → C.OBG 21:59
PROVIDERS: ADMIT Obstetrics & Gynecology; ATTEND Obstetrics & Gynecology
PROC: 10E0XZZ Delivery of Products of Conception, External Approach (ICD-10-PCS; principal; 2018-05-28)
PROC: 0KQM0ZZ Repair Perineum Muscle, Open Approach (ICD-10-PCS; principal; 2018-05-28)
DX: O69.81X0 Labor and delivery complicated by cord around neck, without compression, not applicable or unspecified (principal); O70.1 Second degree perineal laceration during delivery; Z3A.38 38 weeks gestation of pregnancy; Z37.0 Single live birth